=== PATIENT | male | born 1960 | race Caucasian/White ===

== ENCOUNTER 2022-03-25 15:08 | Emergency (ER) | payer MEDICARE, OTHER ==
[~2022-03-25] VITALS: Ht 190.5 cm; Wt 81.6 kg
[2022-03-25 15:10] VITALS: BP_SYST 120
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
[2022-03-25] MEDS ORDERED: NACL 0.9% 2,000 ML IV ONE (16:30)
[2022-03-25 17:18] LABS: BASOPHILS # (AUTO) 0.1 K/uL (0.0-0.2); BASOPHILS % (AUTO) 0.7 % (0.0-2.0); EOSINOPHILS # (AUTO) 0.3 K/uL (0.0-0.4); EOSINOPHILS % (AUTO) 2.6 % (0.0-4.0); HEMATOCRIT 43.6 % (36-54); HEMOGLOBIN 15.2 g/dL (14.0-18.0); LYMPHOCYTES # (AUTO) 1.3 K/uL (1.0-5.5); MEAN CORPUSCULAR HEMOGLOBIN 32 pg (27-31); MEAN CORPUSCULAR HGB CONC 35 % (32-36); MEAN CORPUSCULAR VOLUME 92 fL (79.0-98.0); MONOCYTES # (AUTO) 0.6 K/uL (0.0-1.0); MONOCYTES % (AUTO) 5.6 % (1.7-9.3); NEUTROPHILS % (AUTO) 78.1 % (40.0-70.0); PLATELET COUNT (AUTO) 250 K/uL (130-430); RED BLOOD CELL COUNT(AUTO) 4.73 MIL/uL (4.2-6.2); WHITE BLOOD COUNT (AUTO) 10.2 K/uL (4.8-10.8)
[2022-03-25 17:22] LABS: ANION GAP 13 (5-15); CALCIUM 8.6 mg/dL (8.4-11.0); CHLORIDE 107 mmol/L (98-107); CREATININE 1.12 mg/dL (0.55-1.30); GLUCOSE 120 mg/dL (70-99); POTASSIUM 3.4 mmol/L (3.5-5.1); SODIUM SERUM 145 mmol/L (136-145); UREA NITROGEN, BLOOD 15 mg/dL (8-21)
[2022-03-25 17:27] LABS: GFR AFRICAN AMERICAN 85 mL/min (>90)
[2022-03-25 17:37] LABS: ALANINE AMINOTRANSFERASE 15 U/L (12-78); ALBUMIN 3.5 g/dL (3.4-4.8); ALCOHOL, BLOOD 207 mg/dL (<10); AMYLASE 93 U/L (0-100); ASPARTATE AMINOTRANSFERASE 18 U/L (10-37); LIPASE 191 U/L (73-393); TOTAL BILIRUBIN 0.3 mg/dL (0.0-1.0)
--- NOTE | 2022-03-25 17:45 | NUR ---
A/OX4 VSS PT STATES HE WANTS TO WALK TO [address] [place] [id number] Addendum: 03/25/22 at 1755 by [email or web address] AMBULATED WITH STEADY GAIT, APPEARS TO BE IN NO ACUTE DISTRESS NOTED AT THIS TIME
[2022-03-25 17:53] VITALS: BP_SYST 128
--- NOTE | 2022-03-25 17:54 | NUR ---
PT EDUCATED ON SIGNING OUT AMA
[2022-03-25 18:03] LABS: ACETONE, SERUM NEGATIVE (NEGATIVE)
== END 2022-03-25 17:51 | disposition left against medical advice (07) ==
LOC: SED 15:08
DX: F10.10 Alcohol abuse, uncomplicated (principal); R41.0 Disorientation, unspecified; Z79.899 Other long term (current) drug therapy; Y90.6 Blood alcohol level of 120-199 mg/100 ml
CPT/HCPCS: 99284; 70450; 80053; 82009; 82140; 82150; 83690; 85025; 36415; 72125; 76376; 83605; G0482